=== PATIENT | male | born 1980 | race Caucasian/White ===

== ENCOUNTER 2020-05-18 02:27 | Emergency (ER) | payer MEDICAID, SELFPAY ==
--- NOTE | 2020-05-18 02:50 | PC.NURSE ---
Patient refused cortez insertion
[2020-05-18 02:54] VITALS: BP 130/68; PULSE 95; RESP 17; O2SAT 97
[2020-05-18 03:00] VITALS: BMI 26.6
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
[2020-05-18 03:12] VITALS: BP 145/96; PULSE 99; O2SAT 97
[2020-05-18 03:19] LABS: Microscopic, Urine URINE MICROSCOPIC (MICROSCOPIC)
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
[2020-05-18 03:24] LABS: Appearance,Urine CLEAR (Clear); Blood, Urine TRACE-L (Negative); Color,Urine YELLOW (Yellow); Glucose,Urine (UA) Negative (Negative); Ketones,Urine 1+ (Negative); Leukocyte Esterase,Urine Negative (Negative); Nitrate,Urine Negative (Negative); Protein,Urine TRACE (Negative); Specific Gravity, Urine >= 1.030 (1.005-1.030); Urobilinogen,Urine 0.2 EU/dl (0.2)
--- NOTE | 2020-05-18 03:25 | PC.NURSE ---
call placed to [facility] at this time by dr redding. accepted by dr smith
[2020-05-18 03:26] LABS: Bilirubin,Urine Negative (Negative)
[2020-05-18 03:27] LABS: Alanine Aminotransferase 63 U/L (12-78); Alkaline Phosphatase 132 U/L (38-126); Anion Gap 13.5 mEq/L (5-15); Aspartate Amino Transferase 101 U/L (17-59); Bilirubin,Direct 0.3 mg/dl (0.0-0.4); Bilirubin,Indirect 0.7 mg/dL (0.0-0.9); Bilirubin,Unconjugated 0.7 mg/dL (0.0-1.1); Blood Urea Nitrogen 14 mg/dl (9-20); Calcium 9.7 mg/dl (8.4-10.2); Carbon Dioxide 25 mmol/L (22.0-30.0); Chloride 102 mmol/L (98-107); Creatinine Clearance Estimated 162 mL/min (50-200); Estimated Glomerular Filt Rate 125 ml/min (>60); GFR (African American) 151 ML/MIN (>60); Glucose 111 mg/dl (74-100); Potassium 4.5 mmoL/L (3.5-5.1); Sodium 136 mmol/L (136-145); Total Protein,Serum 9.1 g/dl (6.3-8.2)
--- NOTE | 2020-05-18 03:28 | PC.NURSE ---
call placed to [facility]
[2020-05-18 03:30] VITALS: BP 126/82; PULSE 90; RESP 18; O2SAT 98
[2020-05-18 03:32] LABS: Acetaminophen < 10 ug/ml (10-30); Ethyl Alcohol < 10 mg/dl (0-10)
[2020-05-18 03:37] LABS: Barbiturates Screen,Urine Negative ng/ml (<200); Benzodiazepines Screen,Urine Positive ng/ml (<200)
[2020-05-18 03:38] LABS: Cannabinoid Screen,Urine Negative ng/ml (<50)
[2020-05-18 03:39] LABS: Bacteria,Urine Trace /lpf; Cocaine Screen,Urine Negative ng/ml (<300); WBC,Urine Occasional #/hpf (0-3)
[2020-05-18 03:40] LABS: Methadone Screen,Urine Negative ng/ml (<300)
[2020-05-18 03:41] LABS: Opiate Screen,Urine Negative ng/ml (<300)
--- NOTE | 2020-05-18 03:44 | PC.NURSE ---
waiting on [facility] to take patient
[2020-05-18 03:47] VITALS: BP 126/82; PULSE 96; RESP 17; TEMP 36.7; O2SAT 97
[2020-05-18 03:50] LABS: Phencyclidine Screen,Urine Negative ng/ml (<25)
--- NOTE | 2020-05-18 03:50 | PC.NURSE ---
called [facility] to check on status on arrival time and they advised they are about to leave the station.
[2020-05-18 03:51] LABS: Salicylate < 1.0 mg/dL (2.0-20.0)
[2020-05-18 04:07] VITALS: BP 125/84; PULSE 89; RESP 17; TEMP 36.7; O2SAT 98
[2020-05-21 19:56] LABS: Amphetamine Positive (.); Amphetamines Positive (.); Methamphetamine Positive (.)
[2020-05-22 07:19] LABS: Amphetamine (GC/MS) >4000 ng/mL (Cutoff=500); Methamphetamine (GC/MS) >4000 ng/mL (Cutoff=500)
== END 2020-05-18 04:08 | disposition short-term general hospital (02) ==
PROVIDERS: Emergency Provider Emergency Medicine
DX: S22.41XA Multiple fractures of ribs, right side, initial encounter for closed fracture (principal); S21.212A Laceration without foreign body of left back wall of thorax without penetration into thoracic cavity, initial encounter; S21.211A Laceration without foreign body of right back wall of thorax without penetration into thoracic cavity, initial encounter; V49.3XXA Car occupant (driver) (passenger) injured in unspecified nontraffic accident, initial encounter; Y92.488 Other paved roadways as the place of occurrence of the external cause; F17.210 Nicotine dependence, cigarettes, uncomplicated
CPT/HCPCS: 71045; 72170; 80048; 80076; 80305; 80324; 80329; 81001; 96374; 99284; 99291

== ENCOUNTER 2020-09-05 19:46 | Emergency (ER) | payer MEDICAID, SELFPAY ==
[2020-09-05 19:54] VITALS: BP 115/77; PULSE 107; RESP 16; TEMP 36.7; O2SAT 99; BMI 26.6
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
[2020-09-05 20:15] VITALS: BP 121/76; PULSE 73; RESP 16; TEMP 36.7; O2SAT 98
== END 2020-09-05 20:17 | disposition home or self-care (01) ==
PROVIDERS: Emergency Provider Emergency Medicine
DX: Z00.8 Encounter for other general examination (principal)
CPT/HCPCS: 99283

== ENCOUNTER 2024-06-20 21:13 | Observation (INO) | payer SELFPAY ==
--- NOTE | 2024-06-20 21:09 | ECG_ITS ---
APPROVED REPORT Exam: Resting ECG HR:81 bpm ECG Measurements Heart Rate 81 AXES WV 150 P 73 QRSd 98 QRS 85 QT 367 T 74 QTc 404 Conclusion SINUS RHYTHM NORMAL ECG Electronically signed by : CAMPBELL TORRES, 06/21/2024 03:20:21
--- NOTE | 2024-06-20 21:11 | [facility].EDGENADL ---
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 normal limits. Will give 1 L LR IV for fluid resuscitation/elevated lactic acidosis most likely due to the setting of agitation/dehydration. Patient was quite combative after EKG was obtained, will give additional dose of 2.5 mg IM haloperidol I was able to review the patient's EKG, NSR at 81 bpm, UT interval and QT interval within normal limits there is no STEMI. I reviewed the patient's left ankle x-ray along with corresponding radiologic report, at the time of imaging, the skeletal radiograph demonstrates no acute osseous abnormalities, but shows signs of degenerative changes and soft tissue swelling. ReExamination of the patient 11:30 PM, patient is sleeping resting comfortably in the bed. Urine tox screen is negative with the exception of being positive for amphetamine, having too numerous to count. Discussed this patient's case with Dr. Mcdowell at 11:45 PM, he will be assuming remainder the patient's care/workup. Disposition is metabolize toxic substance and most likely home pending repeat psychological/neurological evaluation last exam. Chris Mcdowell: Upon assumption of care patient is chemically sedate in bed however is arousable, hemodynamically stable, resolved tachycardia heart rate 89. Case was discussed with toxicology, the symptoms related to smoking nutmeg can last anywhere between 6 and 48 hours. After patient is medically cleared he will be appropriate for discharge at that point however if psychiatric symptoms persist he may need evaluation by psychiatry although they are likely related to his ingestion and will resolve. Given likely prolonged need for observation, need for trending labs Case discussed with hospital medicine who admit the patient their service for continued evaluation at this time. I was consulted by the BIJAN, and we discussed the complexity of the problems being addressed. I approved the treatment and management plan for this patient's care in the Emergency Department, thus performing a substantive portion of the medical decision making. Efrain Jameson MD Critical Care <ANISH Garcia - Last Filed: 06/20/24 23:49> Critical Care Time Critical Care Time: No
[2024-06-20 21:13] VITALS: BP 160/89; PULSE 130; RESP 30; TEMP 36.9; O2SAT 97; BMI 26.6
--- NOTE | 2024-06-20 21:13 | XR_ITS ---
PROCEDURE INFORMATION: Exam: XR Left Ankle Exam date and time: 06/20/2024 9:58 PM Age: 43 years old Clinical indication: Pain; Ankle; Left; Additional info: Left ankle pain TECHNIQUE: Imaging protocol: Radiologic exam of the left ankle. Views: 1 or 2 views. COMPARISON: No relevant prior studies available. FINDINGS: Bones/joints: Multiple views were obtained. The osseous structures appear intact with no evidence of acute fracture, dislocation, or malalignment. Degenerative changes are noted, consistent with age-related wear and tear. Joint spaces are generally preserved. No abnormal bone density or destructive lesions are noted. There is a plantar calcaneal enthesophyte. Soft tissues: Soft tissue swelling is observed, warranting further clinical correlation. IMPRESSION: At the time of imaging, the skeletal radiograph demonstrates no acute osseous abnormalities but shows signs of degenerative changes and soft tissue swelling.
[2024-06-20] MEDS: HALOPERIDOL LACTATE 5 MG/ML VIAL 2.5 MG IM ×2 (21:23→22:15)
--- NOTE | 2024-06-20 21:29 | PC.NURSE ---
Paged registration to have the radio electronics technician clergy come in and speak with this patient.
[2024-06-20 21:43] LABS: Basophils # 0.1 K/mm3 (0-0.2); Basophils % 2.1 % (0.1-2.0); Eosinophils # 0.1 K/mm3 (0.0-0.4); Eosinophils % 0.8 % (0.1-12.0); Hematocrit 46.9 % (42.0-52.0); Hemoglobin 14.3 g/dL (14.1-18.0); Lymphocytes # 0.9 K/mm3 (0.7-4.5); Lymphocytes % 13.7 % (10-50); Mean Corpuscular HGB Conc 30.6 g/dL (31.8-35.4); Mean Corpuscular Hemoglobin 30.7 pg (27.0-31.2); Mean Corpuscular Volume 100.3 fl (80-94); Mean Platelet Volume 8.2 fl (7.4-10.4); Monocytes # 0.3 K/mm3 (0.1-1.0); Monocytes % 5.3 % (1.7-9.3); Neutrophils # 4.9 K/mm3 (1.8-7.8); Neutrophils % 78.1 % (37.0-80.0); Platelet Count 229 K/mm3 (142-424); Red Blood Count 4.68 M/mm3 (4.60-6.20); Red Cell Distribution Width 13.2 % (11.5-17.5); White Blood Count 6.2 K/mm3 (4.8-10.8)
[2024-06-20 21:49] LABS: Albumin Level 4.3 g/dl (3.5-5.0); Chloride 111 mmol/L (98-107); Potassium 4.5 mmoL/L (3.5-5.1); Sodium 147 mmol/L (136-145)
[2024-06-20 21:51] LABS: Blood Urea Nitrogen 12 mg/dl (9-20); Creatinine Clearance Estimated 84 mL/min (50-200); Estimated Glomerular Filt Rate 60 ml/min (>60); GFR (African American) 73 ML/MIN (>60)
[2024-06-20 21:52] LABS: Alanine Aminotransferase 84 U/L (12-78); Albumin/Globulin Ratio 1.2 (1.1-1.8); Alkaline Phosphatase 104 U/L (38-126); Anion Gap 10.5 mEq/L (5-15); Aspartate Amino Transferase 67 U/L (17-59); Calcium 9.7 mg/dl (8.4-10.2); Carbon Dioxide 30 mmol/L (22.0-30.0); Globulin 3.6 g/dL (1.3-3.2); Glucose 110 mg/dl (74-100); Magnesium 2.2 mg/dl (1.6-2.3); Total Protein,Serum 7.9 g/dl (6.3-8.2)
[2024-06-20 21:54] LABS: Acetaminophen < 10 ug/ml (10-30); Ethyl Alcohol < 10 mg/dl (0-10); Salicylate < 1.0 mg/dL (2.0-20.0)
[2024-06-20 22:01] LABS: Lactic Acid 4.6 mmol/L (0.7-2.1)
[2024-06-20] MEDS: LACTATED RINGERS 1000ML 1,000 ML 999 ML IV (22:18)
[2024-06-20 22:44] LABS: Ammonia < 9 umol/L (9-30)
[2024-06-20 22:52] LABS: Barbiturates Screen,Urine Negative ng/ml (<200)
[2024-06-20 22:53] LABS: Benzodiazepines Screen,Urine Negative ng/ml (<200)
[2024-06-20 22:54] LABS: Cocaine Screen,Urine Negative ng/ml (<300)
[2024-06-20 22:55] LABS: Methadone Screen,Urine Negative ng/ml (<300)
[2024-06-20 22:56] LABS: Cannabinoid Screen,Urine Negative ng/ml (<50); Opiate Screen,Urine Negative ng/ml (<300)
[2024-06-20 22:57] LABS: Phencyclidine Screen,Urine Negative ng/ml (<25)
[2024-06-21] VITALS: BP 117/84; PULSE 81; RESP 18; TEMP 36.5; O2SAT 99
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
[2024-06-21 00:18] VITALS: BP 128/75; PULSE 85; RESP 20; TEMP 36.7; O2SAT 98
--- NOTE | 2024-06-21 00:31 | PC.NURSE ---
gave report to octavio hernandez on second floor
--- NOTE | 2024-06-21 00:32 | PC.NURSE ---
Patient up and out of bed, staff attempted to redirect patient back to bed as he is unsteady on his feet. Patient began yelling out and pushing at staff. ledger clerk requested PD assistance, contacted dispatch and requested PD presence at this time.
--- NOTE | 2024-06-21 00:34 | PC.NURSE ---
Dr. Mcdowell at bedside at this time speaking with patient.
[2024-06-21 00:55] VITALS: BP 138/70; PULSE 70; RESP 20; TEMP 36.7; O2SAT 98
[2024-06-21] MEDS: 0.9 % SODIUM CHLORIDE 1000ML 1,000 ML 100 ML IV (01:25)
[2024-06-21 01:43] LABS: Reflex Lactic Add Lactic Reflex
[2024-06-21 02:25] LABS: Lactic Acid Follow Up (RFLX 1) 0.7 mmol/L (0.7-2.1)
[2024-06-21 04:00] VITALS: BP 117/73; PULSE 78; PULSE 81; RESP 16; TEMP 36.5; O2SAT 100; BMI 27.6
--- NOTE | 2024-06-21 04:19 | PC.NURSE ---
43 yo male pt is A/O X 2. He has slept since arriving to the floor but arouses to verbal and tactile stimulation. Pt able to state name, and knows where he is but much of speech is slurred and garbled. Bed alarm on due to noticing pt unsteady with transfer from stretcher to bed. During assessment, noted swelling to L ankle and pt winced in pain. Pt was unable to complete most of the questions on admission assessment. He asked for family, however no family present and the lathe operator contact lens listed is his ex . Drivers license locked in medical imaging tech pts room.
[2024-06-21 08:00] VITALS: BP 118/81; PULSE 86; PULSE 90; RESP 15; RESP 18; TEMP 36.6; O2SAT 98; O2SAT 99
[2024-06-21] MEDS: ENOXAPARIN 40MG/0.4ML SYRINGE 40 MG SQ (09:06)
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
--- NOTE | 2024-06-23 12:58 | CARE MANAGER ---
Attempted to contact patient x2 related to hospital discharge. No VM option. VERNA Gan
== END 2024-06-21 13:02 | disposition home or self-care (01) ==
LOC: ER 06-21 00:19 → 2ND 06-21 00:24
PROVIDERS: Physician Assistant; Admitting Provider Internal Medicine; Emergency Provider Emergency Medicine; Visit Provider Internal Medicine
DX: G92.9 Unspecified toxic encephalopathy (principal); R41.82 Altered mental status, unspecified; F16.929 Hallucinogen use, unspecified with intoxication, unspecified; F19.10 Other psychoactive substance abuse, uncomplicated; F17.220 Nicotine dependence, chewing tobacco, uncomplicated
CPT/HCPCS: 73600; 80053; 80307; 80320; 80324; 80329; 82140; 83605; 83735; 85025; 93005; 99285; G0378; J1630; J1650; J7030; J7120

== ENCOUNTER 2025-09-17 09:38 | Emergency (ER) | payer SELFPAY ==
[2025-09-17 09:43] VITALS: BP 155/94; PULSE 111; RESP 19; TEMP 36.5; O2SAT 98; BMI 25.8
--- OUTSIDE RECORDS SUMMARY | 2025-09-17 09:47 | XMS_ITS | Clinical Summary ---
Author Organization [facility] Address [address] [place], [place] [id number] Phone Care Team Providers Care Corporate Safety Director Name Role Phone Unavailable Primary Care Provider Unavailabl e Social History Tobacco Use Types Packs/Day Years Used Date Smoking Tobacco: Never Assessed Sex and Gender Information Value Date Recorded Sex Assigned at Not on file Legal Sex Male 11:14 PM EDT Gender Identity Not on file Sexual Orientation Not on file Plan of Treatment Health Maintenance Due Date Last Done Comments Annual Wellness Exam 1982 DTaP/TDaP/Td (1 - Tdap) 1998 Hepatitis B Vaccine (1 of 3 - 19+ 3-dose series) 1998 Cologuard 2024 Colon Cancer Screening 2024 Colonoscopy 2024 FIT 2024 Sigmoidoscopy 2024 Virtual Colonography 2024 COVID-19 Vaccine (1 - 2024-2 6 season) 2025 Influenza Vaccine (#1) 2025 Meningococcal B Vaccine Aged Out No l onger eligible based on patient's age to complete this topic Pneumococcal Vaccine 0-49 Aged Out No longer eligible based on patient's age to complete this topic
--- OUTSIDE RECORDS SUMMARY | 2025-09-17 09:47 | XMS_ITS | Clinical Summary ---
Author Organization Healthcare Address [address] [place] [address] Care Team Providers Care Dosier Operator Name Role Phone Unavailable Primary Care Provider Unavailabl e Social History Tobacco Use Types Packs/Day Years Used Date Smoking Tobacco: Never Assessed Sex and Gender Information Value Date Recorded Sex Assigned at Not on file Legal Sex Male 7:50 PM EDT Gender Identity Not on file Sexual Orientation Not on file Plan of Treatment Not on file Insurance [employer]
--- OUTSIDE RECORDS SUMMARY | 2025-09-17 09:47 | XMS_ITS ---
Author Organization [facility] Address [address] [place] [address] Care Team Providers Care Roster Clerk Name Role Phone Unavailable Primary Care Provider Unavailabl e Hepatitis C Program Status:Paused (Paused) Start date:05/18/2020 Enrollment date:05/18/2020 Enrollment reason:HCV Continued Care and Services Coordination
[2025-09-17 09:48] VITALS: BP 155/94; PULSE 111; RESP 19; TEMP 36.5; O2SAT 99
--- NOTE | 2025-09-17 09:54 | ED_ITS ---
Discharge Plan Disposition Patient Disposition: Home, Self-Care Prescriptions Prescriptions: No Action No Known Home Medications Referrals Follow up/Referrals: Provider,Referral, [Primary Care Provider, Medical] - See instructions Clinical Impressions Clinical Impression: Encounter for medical assessment Print Language Print Language: Burmese Discharge ED Provider: Champ Smith Adult HPI General Chief complaint: Medical Clearance Stated complaint: Medical Clearance Time Seen by Provider: 09/17/25 09:43 Mode of Arrival: Ambulatory Source of Information: Law Enforcement Description of Symptoms (Recalled from ER Triage Doc. by RN): pt presents to ED for medical clearance. 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 pt refused EMS transport. left calf has small puncture jazzmine from taser [place] and one to left back. no bleeding at this time History of Present Illness HPI narrative: Tyler Jasmine is a 44y male who presents to the emergency department in police custody for medical clearance. Per police, patient was tased due to behavior and refused EMS transport. He was tased in the left calf muscle and left mid back. Patient was noted to have some blood on his left pant leg after being tased. Patient denies any pain to his back or his leg or pain elsewhere. He is alert and answering my questions appropriately. Related Data Home Medications ?Medication ?Instructions ?Recorded ?Confirmed No Known Home Medications 06/21/2405/29 Allergies Allergy/AdvReac Type Severity Reaction Status Date / Time No Known Allergies Allergy Verified 05/18/20 03:02 [facility] Disclaimer: The information contained in this section may have been updated after the patient was seen, as this information can be updated by other users. Social History Smoking Status: Current every day smoker tobacco type: smokeless tobacco alcohol intake: never current occupational status: unemployed Travel in the last 8 weeks?: None Have you lived/traveled outside [place] in past 30 days?: No Contact w/someone who lives/traveled outside [place] past 30 days?: No Exposure to someone with infectious disease in past 14 days?: No Do you have a fever (greater than 100.4 F or 38 C)?: No Have you tested positive for COVID-19?: No Exposed to someone with COVID-19 in past 14 days?: No Do you have a sore throat?: No Do you have a cough?: No Do you have any weakness?: No Do you have any diarrhea?: No Are you experiencing any unusual bleeding?: No Do you have any muscle aches/pain?: No Do you have any abdominal pain?: No Are you experiencing loss of taste or smell?: No Other Medical History Have you received the Flu Vaccine for this season: No Have you received the Pneumonia Vaccine: No ROS Obtained: Yes Systems reviewed as appropriate & no additional complaints except as documented Physical Exam General General appearance: alert and in no apparent distress Head Head exam: atraumatic Eye Eye exam: Present normal appearance ENT ENT exam: Present normal external ear exam Neck Neck exam: Present full ROM Chest Chest inspection: Present symmetric chest wall rise Respiratory Respiratory exam: Present normal lung sounds bilaterally; Absent respiratory distress Cardiovascular Cardiovascular exam: Present regular rate and normal rhythm Abdominal Exam Abdominal exam: Present soft; Absent tenderness or guarding exam: Present deferred Extremities Exam Extremities exam: Present normal inspection Expanded Lower Extremity Exam Left: Leg image: 2 1. Small puncture wound without active bleeding. Dried blood surrounding the area. Nontender and no significant swelling. Back Exam Back exam: Present normal inspection and other (2 small puncture wounds approximately 2 to 3 cm apart on the left thoracic paraspinal area without tenderness, bleeding or swelling) Neurological Exam Neurological exam: Present alert and oriented X3 Psychiatric Psychiatric exam: Present normal affect Skin Skin exam: Present warm and dry Medical Decision Making Medical Records Screening: Per USPSTF and CDC recommendations, given the prevalence of disease in our region, it is our hospital?s policy to screen for HIV and viral Hepatitis for all patients aged 18 and over and those with ongoing risk factors. Yonis Inquiry Pt receiving controlled substance: No Vital Signs: 09/17/25 09:43 09/17/25 09:48 Temperature 97.7 F 97.7 F Temperature Source Oral Pulse Rate 111 H Pulse Rate [Left Radial] 111 H Respiratory Rate 19 19 Blood Pressure 155/94 H Blood Pressure [Right Arm] 155/94 H Blood Pressure Mean [Right Arm] 114 02 Sat by Pulse Oximetry 98 Oxygen Delivery Method Room Air Orders (Tests/Meds): ORDERS Category Date Time Status HIV Combo Routine Lab 09/17/25 09:46 Ordered Hepatitis C Ab Qual. W/ RFX Routine Lab 09/17/25 09:46 Ordered Medical Decision Narrative: Tyler Jasmine is a 44y male who presents to the emergency department in police custody for medical clearance. Per police, patient was tased due to behavior and refused EMS transport. He was tased in the left calf muscle and left mid back. Patient was noted to have some blood on his left pant leg after being tased. Patient denies any pain to his back or his leg or pain elsewhere. He is alert and answering my questions appropriately. On arrival, patient is sitting upright in bed in no distress. He is mildly tachycardic but hemodynamically stable and afebrile maintaining appropriate oxygen saturation on room air. Physical exam, stated above, showed a small puncture jazzmine without retained metal object in the left calf without active bleeding. There is no significant swelling or tenderness. There is dried blood surrounding the area. There are 2 small puncture wounds to the left thoracic paraspinal area without swelling, tenderness or erythema. Patient has no other significant findings on exam. I do not feel that any laboratory workup, x-ray imaging or other diagnostic studies are indicated at this time as there is low likelihood of retained foreign body, rhabdomyolysis, compartment syndrome, or significant electrolyte derangement and feel the patient is medically cleared and appropriate for discharge and please custody. Critical Care Critical Care Time Critical Care Time: No
== END 2025-09-17 10:07 | disposition home or self-care (01) ==
PROVIDERS: Emergency Provider Student in an Organized Health Care Education/Training Program
DX: S81.832A Puncture wound without foreign body, left lower leg, initial encounter (principal); Y35.833A Legal intervention involving a conducted energy device, suspect injured, initial encounter
CPT/HCPCS: 99283